=== PATIENT | male | born 1960 | race Caucasian/White ===

== ENCOUNTER 2021-06-24 13:30 | Emergency (ER) | payer OTHER ==
[~2021-06-24] VITALS: Ht 170.2 cm; Wt 90.7 kg
[2021-06-24 14:03] VITALS: BP 119/68
--- NOTE | 2021-06-24 14:20 | NUR ---
BIB SELF FOR WOUND CHECK ON RIGHT SHOULDER. PT HAD SURGERY AT [facility] 06/11/21.
[2021-06-24] MEDS ORDERED: CEPH-588 PO (16:31)
[2021-06-24] MEDS ORDERED: IBUP-2213 PO (16:31)
[2021-06-24 16:34] VITALS: BP 119/68
--- NOTE | 2021-06-24 16:35 | NUR ---
Patient discharged with v/s stable. Written and verbal after care instructions given and explained. Patient alert, oriented and verbalized understanding of instructions. Ambulatory with steady gait. All questions addressed prior to discharge. ID band removed. Patient advised to follow up with PMD. Rx of KEFLEX, MOTRIN given. Patient educated on indication of medication including possible reaction and side effects. Opportunity to ask questions provided and answered.
== END 2021-06-24 16:35 | disposition home or self-care (01) ==
LOC: MED 13:30
DX: S46.021D Laceration of muscle(s) and tendon(s) of the rotator cuff of right shoulder, subsequent encounter (principal); Z79.899 Other long term (current) drug therapy; X58.XXXD Exposure to other specified factors, subsequent encounter
CPT/HCPCS: 99283